=== PATIENT | male | born 1955 | race American Indian/Alaskan Native ===

== ENCOUNTER 2016-06-08 01:45 | Emergency (ER) | payer OTHER ==
[2016-06-08 01:48] VITALS: BP 146/90; PULSE 68; RESP 16; TEMP 97.5; O2SAT 99
== END 2016-06-08 03:15 | disposition left against medical advice (07) ==
LOC: NED 01:45
DX: R39.9 Unspecified symptoms and signs involving the genitourinary system (principal); Z53.21 Procedure and treatment not carried out due to patient leaving prior to being seen by health care provider
CPT/HCPCS: 99281